=== PATIENT | male | born 1995 | race Two or more races ===

== ENCOUNTER 2021-07-23 12:21 | Emergency (ER) | payer MEDICAID ==
[~2021-07-23] VITALS: Ht 185.4 cm; Wt 79.4 kg
[2021-07-23 13:11] VITALS: BP 154/94
== END 2021-07-23 14:43 | disposition home or self-care (01) ==
LOC: ER 12:21
DX: R04.0 Epistaxis (principal)

== ENCOUNTER 2021-08-03 11:56 | Emergency (ER) | payer MEDICAID ==
[~2021-08-03] VITALS: Ht 185.4 cm; Wt 77.1 kg
[2021-08-03 15:47] VITALS: BP 109/79
[2021-08-03] MEDS ORDERED: IBUP800T27 PO (16:38)
[2021-08-03] MEDS ORDERED: CETITAB29 PO (16:38)
[2021-08-03] MEDS ORDERED: DOXY-286 PO (16:38)
== END 2021-08-03 16:44 | disposition home or self-care (01) ==
LOC: ER 11:56
DX: G43.909 Migraine, unspecified, not intractable, without status migrainosus (principal); J32.9 Chronic sinusitis, unspecified; R42 Dizziness and giddiness
CPT/HCPCS: 70450

== ENCOUNTER 2022-05-16 19:10 | Emergency (ER) | payer MEDICAID ==
[~2022-05-16] VITALS: Ht 185.4 cm; Wt 71.0 kg
[~2022-05-16 19:10] MED LIST: CETITAB29 PO; DOXY-286 PO; IBUP800T27 PO
[2022-05-16] MEDS ORDERED: clonazePAM 0.5 MG TAB PO ONE (20:30)
[2022-05-16 21:17] VITALS: BP 129/84
== END 2022-05-16 21:17 | disposition home or self-care (01) ==
LOC: ER 19:13
DX: F41.9 Anxiety disorder, unspecified (principal); Z76.0 Encounter for issue of repeat prescription

== ENCOUNTER 2022-06-16 16:19 | Emergency (ER) | payer MEDICAID ==
[~2022-06-16] VITALS: Ht 185.4 cm; Wt 79.5 kg
[2022-06-16] MEDS ORDERED: HYDROcodone-ACET 10/325MG TAB PO ONE (17:15)
[2022-06-16 21:37] LABS: Urine Bacteria NONE SEEN /hpf (None Seen); Urine Blood Negative /uL (Negative); Urine Mucus MANY (None Seen); Urine Specific Gravity 1.039 (1.001-1.035); Urine WBC 2 /hpf (0 - 3)
[2022-06-16] MEDS ORDERED: IBUP800T26 PO (22:36)
[2022-06-16] MEDS ORDERED: HYDR-4902 PO (22:36)
[2022-06-16 22:58] VITALS: BP 118/75
== END 2022-06-16 23:00 | disposition home or self-care (01) ==
LOC: ER 16:20
DX: S16.1XXA Strain of muscle, fascia and tendon at neck level, initial encounter (principal); S39.012A Strain of muscle, fascia and tendon of lower back, initial encounter; S90.31XA Contusion of right foot, initial encounter; F41.9 Anxiety disorder, unspecified; Z79.899 Other long term (current) drug therapy; V89.2XXA Person injured in unspecified motor-vehicle accident, traffic, initial encounter; Y93.89 Activity, other specified; Y92.89 Other specified places as the place of occurrence of the external cause; Y99.8 Other external cause status
CPT/HCPCS: 70450; 71101; 72125; 72131; 73630; 81001

== ENCOUNTER 2022-06-19 14:50 | Emergency (ER) | payer MEDICAID ==
[~2022-06-19] VITALS: Ht 185.4 cm; Wt 76.6 kg
[~2022-06-19 14:50] MED LIST changes: +HYDR-4902 PO; +IBUP800T26 PO
[2022-06-19] MEDS ORDERED: KETOROLAC TROMETH 30 MG/ML 1ML VIAL IM ONE (17:15)
[2022-06-19] MEDS ORDERED: CYCL-839 PO (17:18)
[2022-06-19] MEDS ORDERED: ACET1CAP14 PO (17:18)
[2022-06-19] MEDS ORDERED: MORPHINE SULFATE INJ 2 MG/ml SYRG IM ONE (18:15)
[2022-06-19] MEDS ORDERED: ONDANSETRON ODT 4 MG TAB PO ONE (18:15)
[2022-06-19 18:48] VITALS: BP 119/88
== END 2022-06-19 18:28 | disposition home or self-care (01) ==
LOC: ER 14:50
DX: M54.50 Low back pain, unspecified (principal); Z79.1 Long term (current) use of non-steroidal anti-inflammatories (NSAID); Z79.2 Long term (current) use of antibiotics; Z79.899 Other long term (current) drug therapy
CPT/HCPCS: 96372; 99284; J1885; J2270; Q0162

== ENCOUNTER 2022-07-24 14:08 | Emergency (ER) | payer MEDICAID ==
[~2022-07-24] VITALS: Ht 185.4 cm; Wt 79.0 kg
[~2022-07-24 14:08] MED LIST changes: +ACET1CAP14 PO; +CYCL-839 PO
[2022-07-24] MEDS ORDERED: DexAMETHasone SOD PHOS 10MG/1ML VIAL INJ IM ONE (15:00)
[2022-07-24] MEDS ORDERED: PENICILLIN G PROC & BENZAT 1200000 UNITS/2 ML SYRG IM ONE (15:00)
[2022-07-24] MEDS ORDERED: CLIN300C8 PO (16:30)
[2022-07-24] MEDS ORDERED: IBUP800T26 PO (16:30)
[2022-07-24 18:18] VITALS: BP 119/66
== END 2022-07-24 18:22 | disposition home or self-care (01) ==
LOC: ER 14:08
DX: J02.0 Streptococcal pharyngitis (principal); B95.4 Other streptococcus as the cause of diseases classified elsewhere; F41.9 Anxiety disorder, unspecified; Z79.899 Other long term (current) drug therapy; Z88.6 Allergy status to analgesic agent
CPT/HCPCS: 96372; 99284; J0558; J1100

== ENCOUNTER 2022-09-04 20:23 | Emergency (ER) | payer MEDICAID ==
[~2022-09-04] VITALS: Ht 185.4 cm; Wt 78.0 kg
[~2022-09-04 20:23] MED LIST changes: +CLIN300C8 PO
[2022-09-04] MEDS ORDERED: IBUP800T27 PO (22:33)
[2022-09-04] MEDS ORDERED: CYCL-837 PO (22:33)
[2022-09-04] MEDS ORDERED: KETOROLAC TROMETH 60MG/2ML VIAL IM ONE (22:45)
[2022-09-04 23:39] VITALS: BP 121/89
== END 2022-09-04 23:42 | disposition home or self-care (01) ==
LOC: ER 20:23
DX: S39.012A Strain of muscle, fascia and tendon of lower back, initial encounter (principal); Z88.1 Allergy status to other antibiotic agents; Z88.6 Allergy status to analgesic agent; V03.99XA Pedestrian with other conveyance injured in collision with car, pick-up truck or van, unspecified whether traffic or nontraffic accident, initial encounter; Y93.89 Activity, other specified; Y92.488 Other paved roadways as the place of occurrence of the external cause; Y99.8 Other external cause status
CPT/HCPCS: 72100; 96372; 99283; J1885

== ENCOUNTER 2022-10-19 12:39 | Emergency (ER) | payer MEDICAID ==
[~2022-10-19] VITALS: Ht 185.4 cm; Wt 77.6 kg
[~2022-10-19 12:39] MED LIST changes: +CLIN300C70 PO; -CLIN300C8 PO; +CYCL-837 PO; +IBUP-1455 PO; +IBUP-1456 PO; -IBUP800T26 PO; -IBUP800T27 PO
[2022-10-19 13:54] VITALS: BP 119/82
[2022-10-19] MEDS ORDERED: IBUP-1456 PO (14:30)
[2022-10-19] MEDS ORDERED: METH-1182 PO (14:30)
== END 2022-10-19 14:35 | disposition home or self-care (01) ==
LOC: ER 12:39
DX: S32.019A Unspecified fracture of first lumbar vertebra, initial encounter for closed fracture (principal); W01.0XXA Fall on same level from slipping, tripping and stumbling without subsequent striking against object, initial encounter; Y93.89 Activity, other specified; Y92.89 Other specified places as the place of occurrence of the external cause; Y99.8 Other external cause status
CPT/HCPCS: 72100

== ENCOUNTER 2022-10-23 09:36 | Emergency (ER) | payer MEDICAID ==
[~2022-10-23] VITALS: Ht 185.4 cm; Wt 79.5 kg
[~2022-10-23 09:36] MED LIST changes: +METH-1182 PO
[2022-10-23 09:59] VITALS: BP 123/94
[2022-10-23] MEDS ORDERED: HYDROcodone-ACET 10/325MG TAB PO ONE (10:15)
[2022-10-23] MEDS ORDERED: CARI250T PO ×3 (11:00→15:45)
[2022-10-23] MEDS ORDERED: IBUP-1455 PO (11:00)
[2022-10-23] MEDS ORDERED: HYDR-4902 PO ×4 (11:00→15:45)
[2022-10-23] MEDS ORDERED: IBUP-1456 PO (15:45)
== END 2022-10-23 11:18 | disposition home or self-care (01) ==
LOC: ER 09:36
DX: S30.0XXA Contusion of lower back and pelvis, initial encounter (principal); F41.9 Anxiety disorder, unspecified; G89.21 Chronic pain due to trauma; Z79.1 Long term (current) use of non-steroidal anti-inflammatories (NSAID); Z79.899 Other long term (current) drug therapy; W18.39XA Other fall on same level, initial encounter; Y93.89 Activity, other specified; Y92.89 Other specified places as the place of occurrence of the external cause; Y99.8 Other external cause status
CPT/HCPCS: 72100; 72220

== ENCOUNTER 2022-10-23 23:30 | Emergency (ER) | payer MEDICAID ==
[~2022-10-23] VITALS: Ht 185.4 cm; Wt 79.5 kg
[~2022-10-23 23:30] MED LIST changes: +CARI250T PO
[2022-10-23 23:42] VITALS: BP 107/77
== END 2022-10-24 02:54 | disposition left against medical advice (07) ==
LOC: ER 23:30
DX: S30.0XXD Contusion of lower back and pelvis, subsequent encounter (principal); Z53.21 Procedure and treatment not carried out due to patient leaving prior to being seen by health care provider; X58.XXXD Exposure to other specified factors, subsequent encounter
CPT/HCPCS: 99281; J7040